=== PATIENT | male | born 1950 | race Caucasian/White ===

== ENCOUNTER → 2016-02-18 | Outpatient (CLI) | payer BC ==
--- NOTE | 2016-02-18 14:21 | ECHOCARDIOGRAM REPORT ---
*NOTICE TO RECEIVING CONSTITUTION PARTY AGENCY This information is strictly Confidential and protected under [place] law. [place] law prohibits you from making any further disclosure of this information unless further disclosure is expressly permitted by the written consent of the person to whom it pertains or is authorized by law. A general authorization for the release of medical or other information is not sufficient for this purpose. Hospital accepts no responsibility if the information is made available to any other person, INCLUDING THE PATIENT. 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 * No regional wall motion abnormalities noted. * Ejection Fraction = 60-65%. * There is mild mitral regurgitation. Procedure Details * A complete two-dimensional transthoracic echocardiogram was performed (2D, M-mode, Doppler and color flow Doppler). Left Ventricle * The left ventricle is normal in size. * There is mild concentric left ventricular hypertrophy. * Ejection Fraction = 60-65%. * Left ventricular systolic function is normal. * No regional wall motion abnormalities noted. Right Ventricle * The right ventricle is grossly normal size. * The right ventricular systolic function is normal as assessed by tricuspid annular plane systolic excursion (TAPSE) (normal >1.5 cm). Atria * The left atrium is mildly dilated. * The right atrium is mildly dilated. * No ASD detected; PFO is not assessed. Mitral Valve * The mitral valve is normal in structure and function. * There is no mitral valve stenosis. * There is mild mitral regurgitation. Tricuspid Valve * The tricuspid valve anatomy is normal. * There is no tricuspid stenosis. * There is mild tricuspid regurgitation. * Doppler findings do not suggest pulmonary hypertension. Aortic Valve * The aortic valve is trileaflet. * The aortic valve opens well. * Aortic valve sclerosis mild, without significant aortic valvular stenosis. * There is no significant aortic regurgitation. Pulmonic Valve * The pulmonic valve is not well visualized. Great Vessels * Mild aortic root dilatation. Pericardium/Pleural * There is no pericardial effusion. Great Vessels * Normal inferior vena cava size and collapsability with sniff indicates a normal right atrial pressure of 3 mmHg MMode 2D Measurements and Calculations IVSd 1.3 cm IVSs 1.8 cm LVIDd 5.1 cm LVIDs 3.0 cm LVPWd 1.1 cm LVPWs 1.5 cm IVS/LVPW 1.1 FS 42.6 % EDV(Teich) 126.2 ml ESV(Teich) 33.6 ml EF(Teich) 73.4 % EDV(cubed) 136.0 ml ESV(cubed) 25.7 ml EF(cubed) 81.1 % % IVS thick 41.2 % % LVPW thick 29.0 % LV mass(C)d 249.8 grams LV mass(C)dI 141.3 grams/m\S\2 LV mass(C)s 182.7 grams LV mass(C)sI 103.3 grams/m\S\2 SV(Teich) 92.6 ml SI(Teich) 52.4 ml/m\S\2 SV(cubed) 110.3 ml SI(cubed) 62.4 ml/m\S\2 Ao root diam 4.3 cm Ao root area 14.8 cm\S\2 ACS 2.3 cm LA dimension 3.5 cm LA/Ao 0.81 LVOT diam 2.1 cm LVOT area 3.3 cm\S\2 LVAd ap4 37.5 cm\S\2 LVLd ap4 8.9 cm EDV(MOD-sp4) 129.7 ml EDV(sp4-el) 134.9 ml LVAs ap4 18.7 cm\S\2 LVLs ap4 7.0 cm ESV(MOD-sp4) 43.1 ml ESV(sp4-el) 42.7 ml EF(MOD-sp4) 66.8 % EF(sp4-el) 68.3 % LVAd ap2 30.6 cm\S\2 LVLd ap2 8.4 cm EDV(MOD-sp2) 91.9 ml EDV(sp2-el) 94.8 ml LVAs ap2 17.0 cm\S\2 LVLs ap2 6.5 cm ESV(MOD-sp2) 37.0 ml ESV(sp2-el) 37.9 ml EF(MOD-sp2) 59.7 % EF(sp2-el) 60.1 % LVLd %diff -5.83 % EDV(MOD-bp) 111.3 ml LVLs %diff -7.05 % ESV(MOD-bp) 41.2 ml EF(MOD-bp) 63.0 % SV(MOD-sp4) 86.6 ml SI(MOD-sp4) 49.0 ml/m\S\2 SV(MOD-sp2) 54.9 ml SI(MOD-sp2) 31.0 ml/m\S\2 SV(MOD-bp) 70.1 ml SI(MOD-bp) 39.6 ml/m\S\2 SV(sp4-el) 92.2 ml SI(sp4-el) 52.1 ml/m\S\2 SV(sp2-el) 57.0 ml SI(sp2-el) 32.2 ml/m\S\2 Doppler Measurements and Calculations MV E max kathleen 112.7 cm/sec MV A max kathleen 74.4 cm/sec MV E/A 1.5 MV P1/2t max kathleen 94.9 cm/sec MV P1/2t 71.2 msec MVA(P1/2t) 3.1 cm\S\2 MV dec slope 390.6 cm/sec\S\2 MV dec time 0.17 sec Ao V2 max 136.5 cm/sec Ao max PG 7.5 mmHg Ao max PG (full) 3.7 mmHg MICHAEL(V,A) 2.4 cm\S\2 MICHAEL(V,D) 2.4 cm\S\2 LV V1 max PG 3.8 mmHg LV V1 max 97.2 cm/sec TR max kathleen 214.2 cm/sec
== END | disposition home or self-care (01) ==
LOC: C.CPL 12:31
PROVIDERS: ATTEND Internal Medicine Hematology
DX: C90.00 Multiple myeloma not having achieved remission (principal); C90.10 Plasma cell leukemia not having achieved remission

== ENCOUNTER → 2016-08-20 | Outpatient (CLI) | payer BC ==
--- NOTE | 2016-08-20 12:02 | DIAGNOSTIC IMAGING REPORT ---
CHEST 2 VIEWS ROUTINE CLINICAL HISTORY: MULTIPLE MYELOMA COMPARISON STUDY: 12/21/2015 FINDINGS: Exam is improved compared to the prior study. The pleural based masses previously described have shown some complete resolution. Lytic changes of the osseous structures have not progressed. Diaphragms smooth. No focal infiltrate. IMPRESSION: Improved exam. The pleural based masses have resolved. Lytic bony lesions remain stable. Electronically signed by: Mani Dennis M.D. 08/20/2016 12:01 PM Dictated Date/Time: 08/20/2016 12:00 PM
== END | disposition home or self-care (01) ==
LOC: C.CPL 11:43
PROVIDERS: ATTEND Nurse Practitioner Family
DX: C90.00 Multiple myeloma not having achieved remission (principal)

== ENCOUNTER → 2016-09-24 | Outpatient (CLI) | payer BC ==
[2016-09-24 12:25] LABS: HEMATOCRIT 33.5 % (42-52); MEAN CORPUSCULAR HEMOGLOBIN 33.7 pg (25-34); MEAN CORPUSCULAR HGB CONC 33.7 g/dl (32-36); MEAN PLATELET VOLUME 10.9 fL (7.4-10.4); PLATELET COUNT 130 K/uL (130-400); RED BLOOD COUNT 3.35 M/uL (4.7-6.1); WHITE BLOOD COUNT 2.74 K/uL (4.8-10.8)
[2016-09-24 12:57] LABS: BASO % 0.7 %; BASO ABS # 0.02 K/uL (0-0.2); COMPLETE YES; EOS % 0.4 %; GIANT PLATELETS 1+; IG% 1.8 %; LYMPH % 25.2 %; LYMPH ABS # 0.69 K/uL (1.2-3.4); MONO % 24.8 %; NEUT % 47.1 %; TEAR DROP CELLS OCCASIONAL; TOXIC GRANULATION 1+
== END | disposition home or self-care (01) ==
LOC: C.LAB1850 10:34
PROVIDERS: ATTEND Nurse Practitioner Adult Health
DX: C90.00 Multiple myeloma not having achieved remission (principal); D72.819 Decreased white blood cell count, unspecified